=== PATIENT | male | born 1995 | race Caucasian/White ===

== ENCOUNTER 2017-07-25 17:39 | Emergency (ER) | payer BC, OTHER ==
[~2017-07-25] VITALS: Ht 172.7 cm; Wt 73.8 kg
[2017-07-25 17:41] VITALS: TEMP 36.7; Ht 172.7 cm; Wt 73.8 kg
[2017-07-25] MEDS ORDERED: IBUP-1050 PO (18:11)
--- NOTE | 2017-07-25 18:58 | DIAGNOSTIC IMAGING REPORT ---
RIGHT KNEE 3 VIEWS CLINICAL HISTORY: Right knee pain. FINDINGS: AP, crosstable lateral, and sunrise views of the right knee are obtained. No prior studies are available for comparison at the time of dictation. The skeletal structures are well mineralized. No fracture is seen. The joint spaces of the knee are well-maintained. There is no significant joint effusion. Prepatellar soft tissue edema is noted. IMPRESSION: Prepatellar soft tissue swelling with no acute bony abnormality identified. Electronically signed by: Priyank Valle M.D. 07/25/2017 6:57 PM Dictated Date/Time: 07/25/2017 6:55 PM
--- NOTE | 2017-07-25 19:12 | EMERGENCY ROOM VISIT NOTE ---
ED Visit Note First contact with patient: 17:44 CHIEF COMPLAINT: Head injury, right knee pain HISTORY OF PRESENT ILLNESS: This 21-year-old male patient presented to the emergency department, ambulatory, approximately 5 hours after receiving a head injury while wrestling. Patient states he believes he was elbowed on the right side of the head, just posterior to the right ear while wrestling. He did continue to wrestle to match as after this. There was no loss of consciousness. There has been no vomiting. The patient complains of a mild headache. He states the headache initially improved with ibuprofen, but has worsened since. He does have a history of ICH, however this was associated with loss of consciousness and after hit in the head with a baseball. The patient states his symptoms now are nothing like he experienced with that injury. The patient denies balance disturbances, visual disturbances, dizziness , vomiting, confusion, or other concerning symptoms. The patient complains of no neck pain. The patient rates the pain as 2/10 and dull. The patient denies bowel or bladder dysfunction. The patient also complains of 1 year long history of right knee pain. He states initially the pain was on the left, but has recently worsened to the right. He states it is worse today. There is no specific injury. The patient denies swelling or bruising. There is pain anteriorly and with flexion of the knee. They rate the pain as dull, and states he experiences a crunching sensation with flexion and 2/10. The patient states they are able to walk on it. No numbness or tingling. No previous injuries to this knee. No ankle, foot or hip pain. The patient was evaluated for his knee pain approximately 1 year ago, and was told it was "runner's knee". He has not been back for reevaluation. REVIEW OF SYSTEMS: A 10 system review of systems was performed with positives and pertinent negatives listed in the history of present illness. All other systems were reviewed and are negative. ALLERGIES: None MEDICATIONS: None PMH: None SOCIAL HISTORY: The patient lives locally with family. He denies drug, alcohol , tobacco use. PHYSICAL EXAM: Vital Signs: Reviewed Nurse's notes, vital signs stable. GENERAL : This is a 21-year-old white male, in no acute distress, well-developed, well- nourished. NEURO: The patient is alert, oriented to person place and time, and coherent. Normal mini mental status exam. Negative Romberg and pronator drift. Cerebellar function intact. HEAD: Normocephalic, atraumatic. There is some tenderness just posterior to the right ear. There is no obvious hematoma or discoloration. EYES: Pupils are equal round and reactive to light and accommodation. EOMs are full and optic discs and fundi are normal. There is no swelling or discoloration of the tissue surrounding the eyes. EARS: External auditory canals clear without blood. NOSE: Patent without tenderness. No septal hematoma. FACE: No facial bone tenderness. NECK: Supple. There is no cervical spine tenderness. The patient does not have tenderness with movement of the neck. MUSCULOSKELETAL: The right knee is mildly swollen. There is no ecchymosis. There is no joint effusion present. The patient is tender anteriorly and with full flexion. There is no joint line tenderness. The patella does appropriately subluxate, but there is a grinding with subluxation of the patella. Range of motion is full. Strength of the quads and hamstrings is 5/5. Nilay's is negative. Dwayne's and Anterior Drawer tests are negative. There is no discomfort or laxity with varus and valgus stressing. The foot and toes are warm and well-perfused. Dorsalis pedis pulse 2+. Sensation to pain and light touch is intact. Capillary refill less than 2 seconds. RADIOLOGY: RIGHT KNEE 3 VIEWS CLINICAL HISTORY: Right knee pain. FINDINGS: AP, crosstable lateral, and sunrise views of the right knee are obtained. No prior studies are available for comparison at the time of dictation. The skeletal structures are well mineralized. No fracture is seen. The joint spaces of the knee are well-maintained. There is no significant joint effusion. Prepatellar soft tissue edema is noted. IMPRESSION: Prepatellar soft tissue swelling with no acute bony abnormality identified. Electronically signed by: Priyank Valle M.D. 07/25/2017 6:57 PM Dictated Date/Time: 07/25/2017 6:55 PM ED COURSE: I examined the patient. We had a long discussion regarding the benefits versus risks associated with imaging of the brain. The patient is not experiencing any neurological symptoms, and does feel comfortable with close monitoring and no imaging at this time. I do feel that this is appropriate, given the patient's current mental status. He was monitored here in the emergency department while obtaining x-rays of the right knee, and was encouraged to contact me for any changes in mental status or change in opinion to have imaging performed. The patient was agreeable. X-rays of the right knee were performed and reviewed by myself and radiologist as above. I did recommend close orthopedic follow-up regarding the ongoing knee pain. The patient was agreeable. I did offer a knee immobilizer and crutches, and the patient declines. I did offer an [place] wrap, and he declines this as well. I did offer analgesics throughout the patient's stay, and he declined. Discharge instructions reviewed. All questions answered to the patient and his mother satisfaction. The patient was discharged home in good condition ambulatory. I attest that I have personally reviewed the patient's current medication list. Patient was found to have normal blood pressure on screening and does not require follow-up. Etiologies such as migraine, tumor, headache, sinus thrombosis, temporal arteritis, sinusitis, CVA, ICH, SAH, concussion, closed head injury, infection, soft tissue injury, fracture, dislocation, neurovascular compromise, compartment syndrome, as well as others were entertained. DIAGNOSIS: Closed head injury, right knee pain The chart was completed utilizing [employer] Speech voice recognition software. Grammatical errors, random word insertions, pronoun errors, and incomplete sentences are an occasional consequence of this system due to software limitations, ambient noise, and hardware issues. Any formal questions or concerns about the content, text, or information contained within the body of this dictation should be directly addressed to the provider for clarification. Current/Historical Medications Scheduled Ibuprofen (Advil), 200 MG PO UD Allergies Coded Allergies: No Known Allergies (Unverified , 07/25/17) Vital Signs Date Time Temp Pulse Resp B/P (MAP) Pulse Ox O2 Delivery O2 Flow Rate FiO2 07/25/17 19:43 65 18 128/71 100 07/25/17 17:41 36.7 69 18 136/80 95 Room Air 07/25/17 17:41 16 Departure Information Impression Primary Impression: Closed head injury Additional Impression: Right knee pain Dispostion Home / Self-Care Condition GOOD Referrals Real Aragon M.D. (PCP) [facility] Patient Instructions ED Head Injury Closed, ED Knee Pain [facility], [facility] Additional Instructions You have been treated in the Emergency Department for a Closed Head Injury. For pain control, you can use the following [id number] medicines (if >12 yo): Ibuprofen(Motrin, Advil) may be used for fever or pain. Use 600mg every six hours as needed. Take with food. Avoid using more than 2400mg in a 24 hour period. Do not use 2400mg per day for more than three consecutive days without physician direction. Prolonged inappropriate use can lead to stomach upset or ulcers. (AND/OR) Acetaminophen(Tylenol) may be used for fever or pain. Use 1000mg every six hours as needed. Avoid using more than 3000mg in a 24 hour period. You should relax in a quiet, dark place for the rest of the day. Avoid any possible triggers including: cigarette smoke, caffeine, nicotine, chocolate, wine, beer, loud noises or music, or bright lights. You should schedule a follow-up appointment in 2-3 days with your Primary Care Provider or established Neurologist for further evaluation and treatment of your Headache. You should NOT return to athletic play until reevaluated by your [employer]. You should fully comply with their standard protocol regarding head injuries. Your [employer] OR Primary Care Provider will have the final say in your return to athletic play. This timeframe should be AT LEAST 1 week AFTER the date of last symptoms experienced! This is ESSENTIAL to allow for adequate brain healing time and for reduced risk of re-injury. Return to the Emergency Department if your current symptoms worsen despite treatment course outlined above, or if you develop any of the following symptoms : intractable pain despite aforementioned treatment course, visual disturbances , loss of vision, unilateral weakness or facial drooping, slurring of speech, loss of coordination, or loss of consciousness. ORTHOPEDIC INSTRUCTIONS: You were seen in the ED today for right knee pain. As discussed, no abnormalities noted acutely on x-ray. This does not completely rule out the risk of injury. I do recommend immobilization and minimal weight-bearing until follow-up with orthopedics. Ice compresses for 20 minutes at a time four times daily for 2-3 days. Use the crutches as instructed. Rest and elevate your injury. Return to the ER immediately for any numbness, tingling, severe pain, extreme swelling in the extremity or as needed. Call [facility] on Thursday to arrange follow-up. Follow-up with your primary care physician in 2 to 3 days for a recheck of your current condition. Problem Qualifiers Primary Impression: Closed head injury Encounter type: initial encounter Qualified Codes: S09.90XA - Unspecified injury of head, initial encounter Additional Impression: Right knee pain Chronicity: acute Qualified Codes: M25.561 - Pain in right knee
[2017-07-25 19:43] VITALS: BP 128/71; PULSE 65; O2SAT 100
== END 2017-07-25 19:45 | disposition home or self-care (01) ==
LOC: C.EDB 17:40 → C.EDD 19:45
DX: S09.90XA Unspecified injury of head, initial encounter (principal); W50.0XXA Accidental hit or strike by another person, initial encounter; Y93.72 Activity, wrestling; M25.561 Pain in right knee